=== PATIENT | female | born 1955 | race African-American/Black ===

== ENCOUNTER 2022-10-21 10:29 | Inpatient (IN) ==
[2022-10-21] MEDS ORDERED: NS 1,000 ML IV 1,000 ML IV SCH (12:00)
--- NOTE | 2022-10-21 12:16 | EKG ---
Test Reason : A-FIB, CHEST PAIN Blood Pressure : */* mmHG Vent. Rate : 120 BPM Atrial Rate : 330 BPM P-R Int : * ms QRS Dur : 82 ms QT Int : 360 ms P-R-T Axes : 89 -19 114 degrees QTc Int : 508 ms Atrial flutter with variable AV block with premature ventricular or aberrantly conducted complexes Minimal voltage criteria for LVH, may be normal variant ( [place] product ) Nonspecific T wave abnormality Abnormal ECG No previous ECGs available Confirmed by Abiel Diego ([id number]) on 10/22/2022 8:04:08 AM Referred By: Confirmed By: Abiel Diego
[2022-10-21] MEDS: CARDIZEM INJ 125 MG VIAL 125 MG in NS 100 ML IV 100 ML IV PRN (12:32)
[2022-10-21] MEDS: ECOTRIN TAB 325 MG PO SCH (12:38)
[2022-10-21 12:49] VITALS: BMI 23.6
--- NOTE | 2022-10-21 13:10 | DR.H&P ---
H&P - History & Physical for Day of: H&P Date: 10/21/22 - Chief Complaint Chief Complaint: FATIGUE, SOB, CHEST PAIN, PALPITATIONS - History of Present Illness History of Present Illness: IS A 66 YEAR OLD PATIENT OF OURS. SHE HAS A PMH OF HTN, CHRONIC CONSTIPATION, AND ARTHRITIS. PATIENT PRESENTED TO OUR OFFICE TODAY WITH COMPLAINTS OF INCREASED FATIGUE, SHORNTESS OF BREATH, AND PALPITATIONS. SHE REPORTS THAT HER SYMPTOMS STARTED ABOUT A WEEK AND A HALF AGO. UPON EXAMINATION, PATIENT WAS NOTED TO HAVE AN ELEVATED HEARTRATE. EKG INDICATED ATRIAL FIBRILLATION WITH RVR. THIS IS NEW ONSET FOR PATIENT. DECISION WAS MADE TO ADMIT PATIENT TO THE HOSPITAL OBSERVATION STATUS FOR FURTHER EVALUATION AND TREATMENT OF NEW ONSET A-FIB WITH RVR AND HTN. ON ADMISSION, PATIENTS VITALS WERE: 98.1-141-28-98%RA-146/112. LABS WERE OBTAINED. WBC 5.8, RBC 4.05, HGB 13.0, HCT 39.2, PLT COUNT 188, SODIUM 141, POTASSIUM 3.2, BUN 17, CREATININE 1.16, GLUCOSE 139, MAGNESIUM 1.6, TOTAL BILI 1.00, AST 46, ALT 95, ALK PHOS 135, CREATININE 72, TROPONIN 53.7, TOTAL PROTEIN 6.9, ALBUMIN 2.9. EKG WAS OBTAINED AND REVEALED: ATRIAL FLUTTER WITH VARIABLE AV BLOCK WITH PREMATURE VENTRICULAR OR ABERRANTLY CONDUCTED COMPLEXES. HR 120 BMP. ON ADMISSION, PATIENT WAS STARTED ON A CARDIZEM DRIP, ECOTRIN 325MG PO DAILY. WE WILL RESUME HER LISINOPRIL/HCTZ. WE WILL OBTAIN A CHEST XRAY AND AN ECHOCARDIOGRAM. WE WILL REPEAT SERIAL CARDIAC ENZYMES AND EKGS. OTHERWISE, WE WILL FOLLOW UP WITH AM LABS AND CONTINUE TO MONITOR. TIME SPENT ON CLINICAL ASSESSMENT, REVIEWING LABS AND IMAGING, DECISION MAKING, AND DOCUMENTATION GREATER THAN 75 MINUTES. - Past Medical History Past Medical History: Hypertension - Family History Family Medical History: Hypertension - Social History Does patient currently use any type of tobacco product: Yes Have you used tobacco products in the last 12 months: Yes Type of Tobacco Use: Cigarettes Does any household member use tobacco: Yes Alcohol Use: Occasionally Drug Use: None - Review of Systems Constitutional: Weakness Eyes: No Symptoms Reported ENT: No Symptoms Reported Respiratory: Shortness of Breath Cardiovascular: Chest Pain, See HPI, Palpitations Gastrointestinal: No Symptoms Reported Genitourinary: No Symptoms Reported Musculoskeletal: No Symptoms Reported Skin: No Symptoms Reported Neurological: Weakness - Physical Exam Vital Signs: Vital Signs Pulse Rate 115 Pulse Rate 113 Pulse Rate 118 Pulse Rate 122 Pulse Rate 141 Respiratory Rate 26 Respiratory Rate 30 Respiratory Rate 23 Respiratory Rate 29 Respiratory Rate 28 Blood Pressure 134/97 Blood Pressure 149/101 Blood Pressure 149/101 Blood Pressure 146/112 Blood Pressure 146/112 O2 Sat by Pulse Oximetry 95 O2 Sat by Pulse Oximetry 98 O2 Sat by Pulse Oximetry 100 O2 Sat by Pulse Oximetry 99 O2 Sat by Pulse Oximetry 98 Oriented: Normal Eyes: Normal Ear: Normal Nose: Normal Throat: Normal Respiratory: Diminished Throughout Cardiovascular: Tachycardia, Irregular : Normal Auscultation: Bowel Sounds: Normal Palpation: Normal Tenderness: Normal Skin: Normal Musculoskeletal: Normal Psychiatric: Normal Mood Description: Calm Affect: Normal Speech Pattern: Clear - Assessment/Plan (1) New onset atrial fibrillation Status: Acute Plan: ADMIT, OBTAIN SERIAL CARDIAC ENZYMES AND EKGS, OBTAIN ECHO AND CHEST XRAY, START CARDIZEM DRIP, ECOTRIN 325MG PO DAILY. RESUME LISINOPRIL/HCTZ (2) HTN (hypertension) Qualifiers: Hypertension type: primary hypertension Qualified Code(s): I10 - Essential (primary) hypertension Status: Chronic - Allergies Allergies/Adverse Reactions: Allergies Allergy/AdvReac Type Severity Reaction Status Date / Time aspirin AdvReac Verified 10/21/22 12:41 - Medications Home Medications: Home Medications Medication Instructions Recorded Confirmed lisinopril 20 1 tab PO QDAY 10/21/22 10/21/22 mg-hydrochlorothiazide 25 mg tablet
[2022-10-21 13:54] LABS: BASOPHILS # (AUTO) 0.1 X10^3/uL (0.0-0.1); BASOPHILS % (AUTO) 1.1 % (0.2-1.0); EOSINOPHILS # (AUTO) 0.1 x10^3/uL (0.0-0.2); HEMATOCRIT 39.2 % (36.0-47.0); LYMPHOCYTES # (AUTO) 1.3 X10^3/uL (1.3-2.9); LYMPHOCYTES % (AUTO) 21.6 % (21.0-51.0); MEAN CORPUSCULAR HGB CONC 33.1 g/dL (33.0-35.0); MEAN CORPUSCULAR VOLUME 96.8 fL (80.0-100.0); MEAN PLATELET VOLUME 8.2 fL (7.4-11.0); MONOCYTES # (AUTO) 0.4 x10^3/uL (0.3-0.8); MONOCYTES % (AUTO) 6.2 % (0.0-13.0); NEUTROPHILS # (AUTO) 4.1 x10^3/uL (2.2-4.8); NEUTROPHILS % (AUTO) 70.1 % (42.0-75.0); PLATELET COUNT 188 X10^3/uL (150.0-450.0); RED BLOOD COUNT 4.05 X10^6/uL (3.5-5.4); RED CELL DISTRIBUTION WIDTH 15.1 % (11.6-16.5); WHITE BLOOD COUNT 5.8 X10^3/uL (3.6-10.0)
[2022-10-21 14:08] LABS: ALANINE AMINOTRANSFERASE 95 Units/L (12-78); ALBUMIN 2.9 g/dL (3.4-5.0); ALKALINE PHOSPHATASE 135 Units/L (46-116); ASPARTATE AMINO TRANSFERASE 46 Units/L (15-37); BLOOD UREA NITROGEN 17 mg/dL (7-18); CALCIUM 8.8 mg/dL (8.5-10.1); CARBON DIOXIDE 30.3 mmol/L (21-32); CHLORIDE 102 mmol/L (98-107); COR CA(FOR HYPOALB) 9.7 mg/dL (8.5-10.1); COR NA(FOR HYPERGLY) 142 mmol/L (136-145); CREATINE KINASE 72 Units/L (26-192); CREATININE 1.16 mg/dL (0.55-1.02); GLUCOSE 139 mg/dL (65-99); POTASSIUM 3.2 mmol/L (3.5-5.1); SODIUM 141 mmol/L (136-145); TOTAL PROTEIN 6.9 g/dL (6.4-8.2); eGFR NON BLACK RACES 50 (>60)
[2022-10-21] MEDS: ZESTORETIC 20/25 MG PO SCH (14:25)
[2022-10-21] MEDS ORDERED: CONSULT PHARMACY - POTASSIUM & MAGNESIUM XX SCH (15:00)
[2022-10-21] MEDS: K-DUR TAB 20 MEQ PO SCH ×2 (15:45→18:27)
[2022-10-21] MEDS: MAG-OX TAB PO SCH ×2 (15:45→16:55)
[2022-10-21] MEDS: NS + KCL 20 MEQ/L 1,000 ML with MAGNESIUM SULFATE 50% INJ VIAL 1 G IV SCH ×2 (15:45)
--- NOTE | 2022-10-21 16:47 | EKG ---
Test Reason : TACHYCARDIA Blood Pressure : */* mmHG Vent. Rate : 81 BPM Atrial Rate : 366 BPM P-R Int : * ms QRS Dur : 84 ms QT Int : 390 ms P-R-T Axes : * -25 195 degrees QTc Int : 453 ms Atrial flutter with variable AV block with premature ventricular or aberrantly conducted complexes Moderate voltage criteria for LVH, may be normal variant ( Sokolow-Mcmullen , [place] product ) Nonspecific T wave abnormality Abnormal ECG When compared with ECG of 21-OCT-2022 12:07, (Unconfirmed) Nonspecific T wave abnormality now evident in Inferior leads Confirmed by Abiel Diego ([id number]) on 10/22/2022 8:03:47 AM Referred By: Confirmed By: Abiel Diego
--- NOTE | 2022-10-21 21:17 | EKG ---
Test Reason : TACHYCARDIA Blood Pressure : */* mmHG Vent. Rate : 94 BPM Atrial Rate : 376 BPM P-R Int : * ms QRS Dur : 82 ms QT Int : 390 ms P-R-T Axes : * -21 158 degrees QTc Int : 487 ms Atrial flutter with variable AV block with premature ventricular or aberrantly conducted complexes Moderate voltage criteria for LVH, may be normal variant ( Sokolow-Mcmullen , [place] product ) Nonspecific T wave abnormality Prolonged QT Abnormal ECG When compared with ECG of 21-OCT-2022 16:37, (Unconfirmed) No significant change was found Confirmed by Abiel Diego ([id number]) on 10/22/2022 8:03:33 AM Referred By: Confirmed By: Abiel Diego
[2022-10-22] MEDS: CARDIZEM INJ 125 MG VIAL 125 MG in NS 100 ML IV 100 ML IV PRN ×2 (01:29→14:05)
[2022-10-22 05:27] LABS: BASOPHILS # (AUTO) 0.1 X10^3/uL (0.0-0.1); EOSINOPHILS # (AUTO) 0.1 x10^3/uL (0.0-0.2); EOSINOPHILS % (AUTO) 1.4 % (0.9-2.9); HEMATOCRIT 38.3 % (36.0-47.0); LYMPHOCYTES # (AUTO) 1.5 X10^3/uL (1.3-2.9); LYMPHOCYTES % (AUTO) 25.1 % (21.0-51.0); MEAN CORPUSCULAR HEMOGLOBIN 32.6 pg (27.0-34.0); MEAN CORPUSCULAR HGB CONC 33.9 g/dL (33.0-35.0); MEAN CORPUSCULAR VOLUME 96.1 fL (80.0-100.0); MEAN PLATELET VOLUME 8.8 fL (7.4-11.0); MONOCYTES # (AUTO) 0.5 x10^3/uL (0.3-0.8); MONOCYTES % (AUTO) 8.1 % (0.0-13.0); NEUTROPHILS # (AUTO) 3.9 x10^3/uL (2.2-4.8); NEUTROPHILS % (AUTO) 64.4 % (42.0-75.0); PLATELET COUNT 177 X10^3/uL (150.0-450.0); RED BLOOD COUNT 3.99 X10^6/uL (3.5-5.4); WHITE BLOOD COUNT 6.1 X10^3/uL (3.6-10.0)
--- NOTE | 2022-10-22 05:32 | RAD ---
HISTORYCHEST PAIN Relevant Clinical InformationSTUDYCHEST, 1 VIEWCOMPARISONNoneFINDINGSThe trachea is midline. The cardiac silhouette is mildly enlarged.. The lungs are clear without focal infiltrate or effusion. The bony thorax is unremarkable.IMPRESSIONMild cardiomegalyNo active cardiopulmonary disease.Electronically signed by: Keyshawn Brooks (Oct 22, 2022 05:31:01)
[2022-10-22 05:33] LABS: ALANINE AMINOTRANSFERASE 77 Units/L (12-78); ALBUMIN 2.8 g/dL (3.4-5.0); ALKALINE PHOSPHATASE 124 Units/L (46-116); ASPARTATE AMINO TRANSFERASE 31 Units/L (15-37); BLOOD UREA NITROGEN 15 mg/dL (7-18); CALCIUM 8.7 mg/dL (8.5-10.1); CARBON DIOXIDE 29.1 mmol/L (21-32); CHLORIDE 102 mmol/L (98-107); COR CA(FOR HYPOALB) 9.7 mg/dL (8.5-10.1); CREATININE 0.95 mg/dL (0.55-1.02); GLUCOSE 93 mg/dL (65-99); MAGNESIUM 1.6 mg/dL (2.0-2.9); POTASSIUM 3.8 mmol/L (3.5-5.1); SODIUM 139 mmol/L (136-145); TOTAL PROTEIN 6.5 g/dL (6.4-8.2); eGFR NON BLACK RACES > 60 (>60)
[2022-10-22] MEDS: ZESTORETIC 20/25 MG PO SCH (09:30)
[2022-10-22] MEDS: MAG-OX TAB PO SCH ×2 (09:30→21:24)
[2022-10-22] MEDS: NS + KCL 20 MEQ/L 1,000 ML with MAGNESIUM SULFATE 50% INJ VIAL 1 G IV SCH ×2 (09:49)
--- NOTE | 2022-10-22 10:46 | DR.CONSULT ---
CONSULT Consultation for Day of: Date: 10/22/22 Chief Complaint Chief Complaint: sob/fast heart Allergies Allergies Allergy/AdvReac Type Severity Reaction Status Date / Time aspirin AdvReac Verified 10/21/22 12:41 History of Present Illness History of Present Illness: 10 days of sob/fast heart- no prior cardiac history- has htn , smoker,drinks 12 pk weekend- found to be in rafib/fl- trops mildly abnormal- on cardizem drip- no anticaogulation as of yet- no tsh check- echo pending- labs to note: loretta wright, cxr : cardiomegaly Past Medical History Past Medical History: Hypertension Family History Family Medical History: Hypertension Social History Does patient currently use any type of tobacco product: Yes Have you used tobacco products in the last 12 months: Yes Type of Tobacco Use: Cigarettes Does any household member use tobacco: Yes Alcohol Use: Occasionally Drug Use: None Medications Home Medications: aspirin Adverse Reaction (Verified 10/21/22 12:41) CONTINUE taking the following medications lisinopril 20 mg-hydrochlorothiazide 25 mg tablet 1 tab PO QDAY 10/21/22 [History] Physical Exam Vital Signs: Vital Signs Temperature 98.4 F Pulse Rate 104 Pulse Rate 131 Pulse Rate 80 Pulse Rate 78 Pulse Rate 74 Pulse Rate 78 Pulse Rate 86 Pulse Rate 79 Respiratory Rate 20 Respiratory Rate 21 Respiratory Rate 23 Respiratory Rate 23 Respiratory Rate 23 Respiratory Rate 25 Respiratory Rate 26 Respiratory Rate 15 Blood Pressure 122/82 Blood Pressure 127/69 Blood Pressure 129/88 Blood Pressure 145/92 Blood Pressure 134/88 Blood Pressure 128/93 Blood Pressure 116/75 Blood Pressure 135/87 Blood Pressure 135/87 O2 Sat by Pulse Oximetry 97 O2 Sat by Pulse Oximetry 92 O2 Sat by Pulse Oximetry 95 O2 Sat by Pulse Oximetry 95 O2 Sat by Pulse Oximetry 91 O2 Sat by Pulse Oximetry 94 O2 Sat by Pulse Oximetry 94 O2 Sat by Pulse Oximetry 95 alert ox3 hr variable- 6 cm jvd , few crackles at base, irreg 2/6 rolando 1-2 plus edema Plan (1) New onset atrial fibrillation: Status: Acute Plan: echo/tsh/eliquis. rate control w po BB and iv CCB (2) HTN (hypertension): Status: Chronic Qualifiers: Hypertension type: primary hypertension Qualified Code(s): I10 - Essential (primary) hypertension (3) Low serum albumin: Status: Acute Plan: check ua for dumping protein (4) Cardiomegaly: Status: Acute
[2022-10-22] MEDS ORDERED: LOPRESSOR TAB 25 MG PO SCH (11:00)
[2022-10-22] MEDS: ELIQUIS PO SCH ×2 (11:31→21:24)
[2022-10-22] MEDS: LOPRESSOR TAB 25 MG PO SCH ×3 (11:31→23:47)
[2022-10-22 12:19] LABS: BILIRUBIN,URINE NEGATIVE (NEGATIVE); BLOOD/HEMOGLOBIN,URINE 1+ (NEGATIVE); GLUCOSE, URINE NEGATIVE (NEGATIVE); KETONES,URINE NEGATIVE (NEGATIVE); LEUKOCYTE ESTERASE ,URINE 1+ (NEGATIVE); NITRITES,URINE NEGATIVE (NEGATIVE); PROTEIN,URINE 2+ (NEGATIVE); UROBILINOGEN,URINE 2+ (NORMAL)
[2022-10-22 12:28] LABS: APPEARANCE,URINE CLEAR (CLEAR); COLOR,URINE YELLOW (YELLOW)
[2022-10-22 12:29] LABS: BACTERIA,URINE TRACE /HPF (NEGATIVE); RBC,URINE 0-2 /HPF (0-3); SQUAMOUS EPITHELIAL CELL,UR MANY /HPF (NEGATIVE)
[2022-10-22] MEDS: ROCEPHIN VIAL 1 GRAM 1 G in NS 100 ML IV 100 ML IV SCH (14:05)
[2022-10-22] MEDS: ECOTRIN TAB 325 MG PO SCH (18:55)
[2022-10-23 05:20] LABS: BASOPHILS # (AUTO) 0.1 X10^3/uL (0.0-0.1); EOSINOPHILS # (AUTO) 0.1 x10^3/uL (0.0-0.2); EOSINOPHILS % (AUTO) 1.4 % (0.9-2.9); HEMATOCRIT 37.3 % (36.0-47.0); HEMOGLOBIN 12.6 g/dL (12.0-16.0); LYMPHOCYTES # (AUTO) 1.6 X10^3/uL (1.3-2.9); MEAN CORPUSCULAR HEMOGLOBIN 32.4 pg (27.0-34.0); MEAN CORPUSCULAR HGB CONC 33.8 g/dL (33.0-35.0); MEAN PLATELET VOLUME 8.9 fL (7.4-11.0); MONOCYTES # (AUTO) 0.5 x10^3/uL (0.3-0.8); MONOCYTES % (AUTO) 8.4 % (0.0-13.0); NEUTROPHILS % (AUTO) 64.2 % (42.0-75.0); PLATELET COUNT 190 X10^3/uL (150.0-450.0); RED BLOOD COUNT 3.88 X10^6/uL (3.5-5.4); RED CELL DISTRIBUTION WIDTH 15.1 % (11.6-16.5); WHITE BLOOD COUNT 6.3 X10^3/uL (3.6-10.0)
[2022-10-23 05:29] LABS: ALANINE AMINOTRANSFERASE 59 Units/L (12-78); ALBUMIN 2.6 g/dL (3.4-5.0); ALKALINE PHOSPHATASE 114 Units/L (46-116); ASPARTATE AMINO TRANSFERASE 21 Units/L (15-37); BLOOD UREA NITROGEN 13 mg/dL (7-18); CALCIUM 8.7 mg/dL (8.5-10.1); CARBON DIOXIDE 26.6 mmol/L (21-32); CHLORIDE 101 mmol/L (98-107); COR CA(FOR HYPOALB) 9.8 mg/dL (8.5-10.1); CREATININE 0.98 mg/dL (0.55-1.02); GLUCOSE 96 mg/dL (65-99); SODIUM 136 mmol/L (136-145); TOTAL PROTEIN 6.5 g/dL (6.4-8.2); eGFR NON BLACK RACES > 60 (>60)
[2022-10-23] MEDS: LOPRESSOR TAB 25 MG PO SCH ×2 (05:36→11:00)
[2022-10-23] MEDS: CARDIZEM INJ 125 MG VIAL 125 MG in NS 100 ML IV 100 ML IV PRN ×2 (08:36→20:41)
[2022-10-23] MEDS: ZESTORETIC 20/25 MG PO SCH (08:38)
[2022-10-23] MEDS: ROCEPHIN VIAL 1 GRAM 1 G in NS 100 ML IV 100 ML IV SCH (08:38)
[2022-10-23] MEDS: MAG-OX TAB PO SCH ×2 (08:38→20:29)
[2022-10-23] MEDS: NS + KCL 20 MEQ/L 1,000 ML with MAGNESIUM SULFATE 50% INJ VIAL 1 G IV SCH ×2 (08:38)
[2022-10-23] MEDS: ELIQUIS PO SCH ×2 (08:38→20:29)
[2022-10-23] MEDS ORDERED: ELIQUIS PO ONE (10:40)
--- NOTE | 2022-10-23 12:19 | PCM.PROG ---
Progress Note - Progress Note for Day of Date of Exam: 10/22/22 - Subjective Subjective: IS CURRENTLY INPATIENT STATUS FOR TREATMENT OF NEW ONSET A-FIB. SHE HAS A PMH OF HTN, CHRONIC CONSTIPATION, AND ARTHRITIS. PATIENT CONTINUES TO COMPLAIN OF FATIGUE, SHORNTESS OF BREATH, AND PALPITATIONS SINCE ADMISSION. SHE DENIES SIGNIFICANT IMPROVEMENT IN SYMPTOMS. HER RHYTHM HAS REMAINED IRREGULAR AND HER HEART RATE HAS VARIED FROM THE 60s TO 130s. SHE REMAINS ON A CARDIZEM DRIP THIS MORNING. ON EXAMINATION THIS MORNING, HR IS IN THE 120s AND IRREGULAR. BILATERAL LUNGS ARE NOTED WITH DIMINISHED LUNG SOUNDS THROUGHOUT. ABDOMEN IS ROUND, SOFT, AND NON-TENDER WITH NORMAL BOWEL SOUNDS NOTED IN ALL QUADRANTS. GOOD RANGE OF MOTION NOTED TO UPPER AND LOWER EXTREMITIES WITH NO EDEMA NOTED. HER VITALS AT 8AM THIS MORNING WERE: 98.0-80-23-95%-129/88. LABS WERE OBTAINED. WBC 6.1, RBC 3.99, HGB 13.0, HCT 38.3, PLT COUNT 177, SODIUM 139, POTASSIUM 3.8, CHLORIDE 102, CARBON DIOXIDE 29.1, BUN 15, CREATININE 0.95, GLUCOSE 93, CALCIUM 8.7, MAGNESIUM 1.6, AST 31, ALT 77, ALK PHOS 124, TOTAL PROTEIN 6.5, ALBUMIN 2.8. HER TROPONIN AT 21:45 LAST NIGHT WAS 62.2. SHE IS CURRENTLY ON A CARDIZEM DRIP AND IS RECEIVING ECOTRIN 325MG DAILY. HER HOME MEDICATION OF ZESTORETIC WAS RESUMED. THIS MORNING, WE WILL OBTAIN AN ECHOCARDIOGRAM. WE WILL CONSULT , [employer] OFFICER. OTHERWISE, WE WILL FOLLOW UP WITH AM LABS AND CONTINUE TO MONITOR. TIME SPENT ON CLINICAL ASSESSMENT, REVIEWING LABS AND IMAGING, DECISION MAKING, AND DOCUMENTATION GREATER THAN 45 MINUTES. - Past Medical Family Social History Past Med/Fam/Surg Hx: No changes since H&P Allergies: Allergies aspirin Adverse Reaction (Verified 10/21/22 12:41) Pt states it makes her "stomach hurt really bad" - Review of Systems ROS: No change since H&P - Vital Signs and I&O's Vital Signs: Vital Signs Temperature 97.9 F Pulse Rate 69 Pulse Rate 66 Pulse Rate 119 Pulse Rate 123 Pulse Rate 125 Pulse Rate 126 Pulse Rate 127 Pulse Rate 127 Pulse Rate 63 Respiratory Rate 21 Respiratory Rate 21 Respiratory Rate 28 Respiratory Rate 17 Respiratory Rate 29 Respiratory Rate 23 Respiratory Rate 34 Respiratory Rate 34 Respiratory Rate 26 Blood Pressure 126/96 Blood Pressure 124/80 Blood Pressure 136/77 Blood Pressure 136/64 Blood Pressure 122/95 Blood Pressure 129/81 Blood Pressure 129/81 Blood Pressure 133/89 O2 Sat by Pulse Oximetry 94 O2 Sat by Pulse Oximetry 95 O2 Sat by Pulse Oximetry 95 O2 Sat by Pulse Oximetry 96 O2 Sat by Pulse Oximetry 96 O2 Sat by Pulse Oximetry 95 O2 Sat by Pulse Oximetry 82 O2 Sat by Pulse Oximetry 94 Intake and Output: Intake & Output 10/21/22 10/22/22 10/23/22 10/24/22 11:59 11:59 11:59 11:59 Intake Total / Balance / - Physical Exam Oriented: Normal Eyes: Normal Ear: Normal Nose: Normal Throat: Normal Respiratory: Generalized, Diminished Cardiovascular: Tachycardia, Irregular : Normal Auscultation: Bowel Sounds: Normal Palpation: Normal Tenderness: Normal Skin: Normal Musculoskeletal: Normal Psychiatric: Normal Mood Description: Calm Affect: Normal Speech Pattern: Clear, Appropriate - Laboratory and Diagnostics Result Diagrams: 10/23/22 04:36 10/23/22 04:36 Labs: Laboratory WBC 6.3 X10^3/uL (3.6-10.0) 10/23/22 04:36 RBC 3.88 X10^6/uL (3.5-5.4) 10/23/22 04:36 Hgb 12.6 g/dL (12.0-16.0) 10/23/22 04:36 Hct 37.3 % (36.0-47.0) 10/23/22 04:36 MCV 96.0 fL (80.0-100.0) 10/23/22 04:36 MCH 32.4 pg (27.0-34.0) 10/23/22 04:36 MCHC 33.8 g/dL (33.0-35.0) 10/23/22 04:36 RDW 15.1 % (11.6-16.5) 10/23/22 04:36 Plt Count 190 X10^3/uL (150.0-450.0) 10/23/22 04:36 MPV 8.9 fL (7.4-11.0) 10/23/22 04:36 Neut % (Auto) 64.2 % (42.0-75.0) 10/23/22 04:36 Lymph % (Auto) 25.0 % (21.0-51.0) 10/23/22 04:36 [place] % (Auto) 8.4 % (0.0-13.0) 10/23/22 04:36 Eos % (Auto) 1.4 % (0.9-2.9) 10/23/22 04:36 Baso % (Auto) 1.0 % (0.2-1.0) 10/23/22 04:36 Neut # (Auto) 4.0 x10^3/uL (2.2-4.8) 10/23/22 04:36 Lymph # (Auto) 1.6 X10^3/uL (1.3-2.9) 10/23/22 04:36 [place] # (Auto) 0.5 x10^3/uL (0.3-0.8) 10/23/22 04:36 Eos # (Auto) 0.1 x10^3/uL (0.0-0.2) 10/23/22 04:36 Baso # (Auto) 0.1 X10^3/uL (0.0-0.1) 10/23/22 04:36 Absolute Nucleated RBC 0.1 /100WBC 10/23/22 04:36 Sodium 136 mmol/L (136-145) 10/23/22 04:36 Corrected Sodium TNP 10/23/22 04:36 Potassium 4.0 mmol/L (3.5-5.1) 10/23/22 04:36 Chloride 101 mmol/L (98-107) 10/23/22 04:36 Carbon Dioxide 26.6 mmol/L (21-32) 10/23/22 04:36 BUN 13 mg/dL (7-18) 10/23/22 04:36 Creatinine 0.98 mg/dL (0.55-1.02) 10/23/22 04:36 Est GFR (MDRD) Af Amer > 60 (>60) 10/23/22 04:36 Est GFR (MDRD) Non-Af > 60 (>60) 10/23/22 04:36 Glucose 96 mg/dL (65-99) 10/23/22 04:36 Calcium 8.7 mg/dL (8.5-10.1) 10/23/22 04:36 Corrected Calcium 9.8 mg/dL (8.5-10.1) 10/23/22 04:36 Magnesium 1.7 mg/dL (2.0-2.9) L 10/23/22 04:36 Total Bilirubin 0.90 mg/dL (0.2-1.0) 10/23/22 04:36 AST 21 Units/L (15-37) 10/23/22 04:36 ALT 59 Units/L (12-78) 10/23/22 04:36 Alkaline Phosphatase 114 Units/L (46-116) 10/23/22 04:36 Creatine Kinase 58 Units/L (26-192) 10/21/22 21:45 Troponin I High Sens 62.2 ng/L (4.0-60.0) H* 10/21/22 21:45 Total Protein 6.5 g/dL (6.4-8.2) 10/23/22 04:36 Albumin 2.6 g/dL (3.4-5.0) L 10/23/22 04:36 Globulin 3.9 g/dL (2.5-4.5) 10/23/22 04:36 Albumin/Globulin Ratio 0.7 Ratio (1.1-2.1) L 10/23/22 04:36 TSH 3rd Generation 2.091 uIU/mL (0.358-3.74) 10/22/22 11:47 Specimen Type Clean catch urine 10/22/22 12:00 Urine Color Yellow (YELLOW) 10/22/22 12:00 Urine Appearance Clear (CLEAR) 10/22/22 12:00 Urine pH 7.0 (5.0 - 8.0) 10/22/22 12:00 Ur Specific [place] 1.010 (1.000-1.030) 10/22/22 12:00 Urine Protein 2+ (NEGATIVE) 10/22/22 12:00 Urine Glucose (UA) Negative (NEGATIVE) 10/22/22 12:00 Urine Ketones Negative (NEGATIVE) 10/22/22 12:00 Urine Blood 1+ (NEGATIVE) 10/22/22 12:00 Urine Nitrite Negative (NEGATIVE) 10/22/22 12:00 Urine Bilirubin Negative (NEGATIVE) 10/22/22 12:00 Urine Urobilinogen 2+ (NORMAL) 10/22/22 12:00 Ur Leukocyte Esterase 1+ (NEGATIVE) 10/22/22 12:00 Urine RBC 0-2 /HPF (0-3) 10/22/22 12:00 Urine WBC 0-2 /HPF (0-5) 10/22/22 12:00 Ur Squamous Epith Cells Many /HPF (NEGATIVE) 10/22/22 12:00 Urine Bacteria Trace /HPF (NEGATIVE) 10/22/22 12:00 Urine Mucus Few /HPF (NEGATIVE) 10/22/22 12:00 Ur Culture Indicated? No/not indicated 10/22/22 12:00 - Plan (1) New onset atrial fibrillation Status: Acute Plan: OBTAIN ECHO AND CARDIOLOGY CONSULT, CONTINUE CARDIZEM DRIP, ECOTRIN 325MG PO DAILY AND LISINOPRIL/HCTZ (2) HTN (hypertension) Status: Chronic Qualifiers: Hypertension type: primary hypertension Qualified Code(s): I10 - Essential (primary) hypertension Plan: CONTINUE LISINOPRIL/HCTZ
--- NOTE | 2022-10-23 12:29 | PCM.PROG ---
Progress Note - Progress Note for Day of Date of Exam: 10/23/22 - Subjective Subjective: IS CURRENTLY INPATIENT STATUS FOR TREATMENT OF NEW ONSET A-FIB. SHE HAS A PMH OF HTN, CHRONIC CONSTIPATION, AND ARTHRITIS. PATIENT CONTINUES TO COMPLAIN OF FATIGUE, SHORNTESS OF BREATH, AND PALPITATIONS SINCE ADMISSION. SHE DOES REPORT SLIGHT IMPROVEMENT IN SYMPTOMS SINCE ADMISSION. HER RHYTHM HAS REMAINED IRREGULAR AND HER HEART RATE HAS VARIED FROM THE 60s TO 120s. ON EXAMINATION THIS MORNING, HR IS IN THE 120s AND IRREGULAR. BILATERAL LUNGS ARE NOTED WITH DIMINISHED LUNG SOUNDS THROUGHOUT. ABDOMEN IS ROUND, SOFT, AND NON-TENDER WITH NORMAL BOWEL SOUNDS NOTED IN ALL QUADRANTS. GOOD RANGE OF MOTION NOTED TO UPPER AND LOWER EXTREMITIES WITH NO EDEMA NOTED. HER VITALS AT 8AM THIS MORNING WERE: 97.9-125-29-96%-136/64. LABS WERE OBTAINED. WBC 6.3, RBC 3.88, HGB 12.6, HCT 37.3, PLT COUNT 190, SODIUM 136, POTASSIUM 4.0, CHLORIDE 101, BUN 13, CREATININE 0.98, GLUCOSE 96, CALCIUM 8.7, MAGNESIUM 1.7, AST 21, ALT 59, ALK PHOS 114, TOTAL PROTEIN 6.5, ALBUMIN 2.6. AN ECHOCARDIOGRAM WAS OBTAINED YESTERDAY. HER EJECTION FRACTION WAS 25-30%. THERE WAS A LARGE MASS SEEN IN [place] CONSISTENT WITH THROMBUS. SCLEROSIS OF THE AORTIC VALVE. RVSP 51mmHg. , LABORER WHARF, CONSULTED WITH PATIENT YESTERDAY. HE DISCONTINUED THE CARDIZEM DRIP AND STARTED ELIQUIS 5MG BID AND METOPROLOL 25MG Q6H. HER HR REMAINED ELEVATED THROUGHOUT THE NIGHT DESPITE CHANGES, THEREFORE, SHE WAS PLACE D BACK ON THE CARDIZEM DRIP. TODAY, WE WILL INCREASE THE ELIQUIS TO 10MG BID. OTHERWISE, WE WILL FOLLOW UP WITH AM LABS AND CONTINUE TO MONITOR. TIME SPENT ON CLINICAL ASSESSMENT, REVIEWING LABS AND IMAGING, DECISION MAKING, AND DOCUMENTATION GREATER THAN 75 MINUTES. - Past Medical Family Social History Past Med/Fam/Surg Hx: No changes since H&P Allergies: Allergies aspirin Adverse Reaction (Verified 10/21/22 12:41) Pt states it makes her "stomach hurt really bad" - Review of Systems ROS: No change since H&P - Vital Signs and I&O's Vital Signs: Vital Signs Temperature 97.9 F Pulse Rate 69 Pulse Rate 66 Pulse Rate 119 Pulse Rate 123 Pulse Rate 125 Pulse Rate 126 Pulse Rate 127 Pulse Rate 127 Pulse Rate 63 Respiratory Rate 21 Respiratory Rate 21 Respiratory Rate 28 Respiratory Rate 17 Respiratory Rate 29 Respiratory Rate 23 Respiratory Rate 34 Respiratory Rate 34 Respiratory Rate 26 Blood Pressure 126/96 Blood Pressure 124/80 Blood Pressure 136/77 Blood Pressure 136/64 Blood Pressure 122/95 Blood Pressure 129/81 Blood Pressure 129/81 Blood Pressure 133/89 O2 Sat by Pulse Oximetry 94 O2 Sat by Pulse Oximetry 95 O2 Sat by Pulse Oximetry 95 O2 Sat by Pulse Oximetry 96 O2 Sat by Pulse Oximetry 96 O2 Sat by Pulse Oximetry 95 O2 Sat by Pulse Oximetry 82 O2 Sat by Pulse Oximetry 94 Intake and Output: Intake & Output 10/21/22 10/22/22 10/23/22 10/24/22 11:59 11:59 11:59 11:59 Intake Total 2002.0 50 / 1915.50 Balance 0 50 / 50 - Physical Exam Oriented: Normal Eyes: Normal Ear: Normal Nose: Normal Throat: Normal Respiratory: Generalized, Diminished Cardiovascular: Tachycardia, Irregular : Normal Auscultation: Bowel Sounds: Normal Palpation: Normal Tenderness: Normal Skin: Normal Musculoskeletal: Normal Psychiatric: Normal Mood Description: Calm Affect: Normal Speech Pattern: Clear, Appropriate - Laboratory and Diagnostics Result Diagrams: 10/23/22 04:36 10/23/22 04:36 Labs: Laboratory WBC 6.3 X10^3/uL (3.6-10.0) 10/23/22 04:36 RBC 3.88 X10^6/uL (3.5-5.4) 10/23/22 04:36 Hgb 12.6 g/dL (12.0-16.0) 10/23/22 04:36 Hct 37.3 % (36.0-47.0) 10/23/22 04:36 MCV 96.0 fL (80.0-100.0) 10/23/22 04:36 MCH 32.4 pg (27.0-34.0) 10/23/22 04:36 MCHC 33.8 g/dL (33.0-35.0) 10/23/22 04:36 RDW 15.1 % (11.6-16.5) 10/23/22 04:36 Plt Count 190 X10^3/uL (150.0-450.0) 10/23/22 04:36 MPV 8.9 fL (7.4-11.0) 10/23/22 04:36 Neut % (Auto) 64.2 % (42.0-75.0) 10/23/22 04:36 Lymph % (Auto) 25.0 % (21.0-51.0) 10/23/22 04:36 [place] % (Auto) 8.4 % (0.0-13.0) 10/23/22 04:36 Eos % (Auto) 1.4 % (0.9-2.9) 10/23/22 04:36 Baso % (Auto) 1.0 % (0.2-1.0) 10/23/22 04:36 Neut # (Auto) 4.0 x10^3/uL (2.2-4.8) 10/23/22 04:36 Lymph # (Auto) 1.6 X10^3/uL (1.3-2.9) 10/23/22 04:36 [place] # (Auto) 0.5 x10^3/uL (0.3-0.8) 10/23/22 04:36 Eos # (Auto) 0.1 x10^3/uL (0.0-0.2) 10/23/22 04:36 Baso # (Auto) 0.1 X10^3/uL (0.0-0.1) 10/23/22 04:36 Absolute Nucleated RBC 0.1 /100WBC 10/23/22 04:36 Sodium 136 mmol/L (136-145) 10/23/22 04:36 Corrected Sodium TNP 10/23/22 04:36 Potassium 4.0 mmol/L (3.5-5.1) 10/23/22 04:36 Chloride 101 mmol/L (98-107) 10/23/22 04:36 Carbon Dioxide 26.6 mmol/L (21-32) 10/23/22 04:36 BUN 13 mg/dL (7-18) 10/23/22 04:36 Creatinine 0.98 mg/dL (0.55-1.02) 10/23/22 04:36 Est GFR (MDRD) Af Amer > 60 (>60) 10/23/22 04:36 Est GFR (MDRD) Non-Af > 60 (>60) 10/23/22 04:36 Glucose 96 mg/dL (65-99) 10/23/22 04:36 Calcium 8.7 mg/dL (8.5-10.1) 10/23/22 04:36 Corrected Calcium 9.8 mg/dL (8.5-10.1) 10/23/22 04:36 Magnesium 1.7 mg/dL (2.0-2.9) L 10/23/22 04:36 Total Bilirubin 0.90 mg/dL (0.2-1.0) 10/23/22 04:36 AST 21 Units/L (15-37) 10/23/22 04:36 ALT 59 Units/L (12-78) 10/23/22 04:36 Alkaline Phosphatase 114 Units/L (46-116) 10/23/22 04:36 Creatine Kinase 58 Units/L (26-192) 10/21/22 21:45 Troponin I High Sens 62.2 ng/L (4.0-60.0) H* 10/21/22 21:45 Total Protein 6.5 g/dL (6.4-8.2) 10/23/22 04:36 Albumin 2.6 g/dL (3.4-5.0) L 10/23/22 04:36 Globulin 3.9 g/dL (2.5-4.5) 10/23/22 04:36 Albumin/Globulin Ratio 0.7 Ratio (1.1-2.1) L 10/23/22 04:36 TSH 3rd Generation 2.091 uIU/mL (0.358-3.74) 10/22/22 11:47 Specimen Type Clean catch urine 10/22/22 12:00 Urine Color Yellow (YELLOW) 10/22/22 12:00 Urine Appearance Clear (CLEAR) 10/22/22 12:00 Urine pH 7.0 (5.0 - 8.0) 10/22/22 12:00 Ur Specific [place] 1.010 (1.000-1.030) 10/22/22 12:00 Urine Protein 2+ (NEGATIVE) 10/22/22 12:00 Urine Glucose (UA) Negative (NEGATIVE) 10/22/22 12:00 Urine Ketones Negative (NEGATIVE) 10/22/22 12:00 Urine Blood 1+ (NEGATIVE) 10/22/22 12:00 Urine Nitrite Negative (NEGATIVE) 10/22/22 12:00 Urine Bilirubin Negative (NEGATIVE) 10/22/22 12:00 Urine Urobilinogen 2+ (NORMAL) 10/22/22 12:00 Ur Leukocyte Esterase 1+ (NEGATIVE) 10/22/22 12:00 Urine RBC 0-2 /HPF (0-3) 10/22/22 12:00 Urine WBC 0-2 /HPF (0-5) 10/22/22 12:00 Ur Squamous Epith Cells Many /HPF (NEGATIVE) 10/22/22 12:00 Urine Bacteria Trace /HPF (NEGATIVE) 10/22/22 12:00 Urine Mucus Few /HPF (NEGATIVE) 10/22/22 12:00 Ur Culture Indicated? No/not indicated 10/22/22 12:00 - Plan (1) New onset atrial fibrillation Status: Acute Plan: NS WITH POTASSIUM AND MAGNESIUM AT KVO, CARDIZEM DRIP, ELIQUIS 10MG BID, LOPRESSOR 25MG Q6H, LISINOPRIL/HCTZ, MAGNESIUM OXIDE 400MG BID. (2) [place] thrombus Status: Acute (3) Hypomagnesemia Status: Acute (4) Bacteriuria Status: Acute Plan: ROCEPHIN 1G IV DAILY (5) HTN (hypertension) Status: Chronic Qualifiers: Hypertension type: primary hypertension Qualified Code(s): I10 - Essential (primary) hypertension Plan: CONTINUE LISINOPRIL/HCTZ
--- NOTE | 2022-10-23 13:12 | NOTE.SOAP ---
Soap Note Note for Day of Date of Exam: 10/23/22 Subjective Data Subjective Data: sob improved, edema improved- Objective Data Objective Data: hr 60-140( very labile)- still on 10 mg cardizem- echo: ef 30%-big LA mass c/w clot- urine shows 2plus protein so proteinuria contributing to low albumn, tsh normal- Alert ox3 irregirreg few crckles rolando minimal edema Assessment Assessment: afib, cardiomyopathy, left atrial clot, Etoh abuse, low albumin and proteinuria Plan Plan: change to metoprolol succ due to LV dysfunction, add dig for lv/rate control- cont DOAC- stop etoh- will need ischemic eval in future( posssibly coronary CTA ) but must hav ebetter rate control
[2022-10-23] MEDS: LANOXIN or DIGITEK PO SCH (13:40)
[2022-10-23] MEDS: TOPROL XL PO SCH (20:29)
[2022-10-24] MEDS: CARDIZEM INJ 125 MG VIAL 125 MG in NS 100 ML IV 100 ML IV PRN ×2 (05:04→18:25)
[2022-10-24 05:27] LABS: BASOPHILS # (AUTO) 0.1 X10^3/uL (0.0-0.1); BASOPHILS % (AUTO) 0.9 % (0.2-1.0); EOSINOPHILS # (AUTO) 0.1 x10^3/uL (0.0-0.2); EOSINOPHILS % (AUTO) 1.5 % (0.9-2.9); HEMATOCRIT 38.1 % (36.0-47.0); LYMPHOCYTES # (AUTO) 1.5 X10^3/uL (1.3-2.9); LYMPHOCYTES % (AUTO) 24.2 % (21.0-51.0); MEAN CORPUSCULAR HEMOGLOBIN 32.7 pg (27.0-34.0); MEAN CORPUSCULAR HGB CONC 34.2 g/dL (33.0-35.0); MEAN CORPUSCULAR VOLUME 95.6 fL (80.0-100.0); MEAN PLATELET VOLUME 9.1 fL (7.4-11.0); MONOCYTES # (AUTO) 0.5 x10^3/uL (0.3-0.8); MONOCYTES % (AUTO) 7.5 % (0.0-13.0); NEUTROPHILS # (AUTO) 4.2 x10^3/uL (2.2-4.8); NEUTROPHILS % (AUTO) 65.9 % (42.0-75.0); PLATELET COUNT 195 X10^3/uL (150.0-450.0); RED BLOOD COUNT 3.98 X10^6/uL (3.5-5.4); RED CELL DISTRIBUTION WIDTH 15.3 % (11.6-16.5); WHITE BLOOD COUNT 6.3 X10^3/uL (3.6-10.0)
[2022-10-24 05:42] LABS: ALANINE AMINOTRANSFERASE 50 Units/L (12-78); ALBUMIN 2.7 g/dL (3.4-5.0); ALKALINE PHOSPHATASE 112 Units/L (46-116); ASPARTATE AMINO TRANSFERASE 20 Units/L (15-37); BLOOD UREA NITROGEN 12 mg/dL (7-18); CALCIUM 8.9 mg/dL (8.5-10.1); CARBON DIOXIDE 26.4 mmol/L (21-32); CHLORIDE 102 mmol/L (98-107); COR CA(FOR HYPOALB) 9.9 mg/dL (8.5-10.1); CREATININE 0.98 mg/dL (0.55-1.02); GLUCOSE 93 mg/dL (65-99); MAGNESIUM 1.7 mg/dL (2.0-2.9); POTASSIUM 3.7 mmol/L (3.5-5.1); SODIUM 137 mmol/L (136-145); TOTAL PROTEIN 6.7 g/dL (6.4-8.2); eGFR NON BLACK RACES > 60 (>60)
[2022-10-24] MEDS ORDERED: CONSULT PHARMACY - POTASSIUM & MAGNESIUM XX SCH (07:00)
[2022-10-24] MEDS: ROCEPHIN VIAL 1 GRAM 1 G in NS 100 ML IV 100 ML IV SCH (08:04)
[2022-10-24] MEDS: MAG-OX TAB PO SCH ×4 (08:05→21:41)
[2022-10-24] MEDS: ZESTORETIC 20/25 MG PO SCH (08:05)
[2022-10-24] MEDS: LANOXIN or DIGITEK PO SCH (08:05)
[2022-10-24] MEDS: TOPROL XL PO SCH ×2 (08:05→21:42)
[2022-10-24] MEDS: ELIQUIS PO SCH ×2 (08:05→21:41)
[2022-10-24] MEDS ORDERED: K-DUR TAB 20 MEQ PO SCH (09:00)
[2022-10-24] MEDS: NS + KCL 20 MEQ/L 1,000 ML with MAGNESIUM SULFATE 50% INJ VIAL 1 G IV SCH ×2 (09:08)
--- NOTE | 2022-10-24 13:53 | NOTE.SOAP ---
Soap Note Note for Day of Date of Exam: 10/24/22 Subjective Data Subjective Data: no sob/cp/edema/stroke sx- with ef 30% and trops positive- we will eval for cad by cardiac cta as long as hr 60s in am Objective Data Objective Data: pulse 60s on dig/bb and still iv cardizem at 5 mg/min- Assessment Assessment: atrial fib, cardiomyopathy ef 30%-LA clot on DOAC, etoh abuse, low albumin and proteinuria Plan Plan: change to po cardizem - wean off drip- CCTA in am to r/o cad
[2022-10-24] MEDS: CARDIZEM TAB 30 MG PLAIN PO SCH ×2 (15:39→21:41)
[2022-10-24] MEDS ORDERED: CARDIZEM INJ 125 MG VIAL IVP ONE (18:07)
[2022-10-25 05:02] LABS: BASOPHILS # (AUTO) 0.1 X10^3/uL (0.0-0.1); EOSINOPHILS # (AUTO) 0.1 x10^3/uL (0.0-0.2); EOSINOPHILS % (AUTO) 1.4 % (0.9-2.9); HEMATOCRIT 39.1 % (36.0-47.0); HEMOGLOBIN 13.4 g/dL (12.0-16.0); LYMPHOCYTES # (AUTO) 1.3 X10^3/uL (1.3-2.9); LYMPHOCYTES % (AUTO) 20.6 % (21.0-51.0); MEAN CORPUSCULAR HEMOGLOBIN 32.5 pg (27.0-34.0); MEAN CORPUSCULAR HGB CONC 34.1 g/dL (33.0-35.0); MEAN CORPUSCULAR VOLUME 95.4 fL (80.0-100.0); MEAN PLATELET VOLUME 8.9 fL (7.4-11.0); MONOCYTES # (AUTO) 0.6 x10^3/uL (0.3-0.8); MONOCYTES % (AUTO) 8.8 % (0.0-13.0); NEUTROPHILS # (AUTO) 4.3 x10^3/uL (2.2-4.8); NEUTROPHILS % (AUTO) 68.2 % (42.0-75.0); PLATELET COUNT 210 X10^3/uL (150.0-450.0); RED CELL DISTRIBUTION WIDTH 15.4 % (11.6-16.5); WHITE BLOOD COUNT 6.4 X10^3/uL (3.6-10.0)
[2022-10-25 05:13] LABS: ALANINE AMINOTRANSFERASE 46 Units/L (12-78); ALBUMIN 2.7 g/dL (3.4-5.0); ALKALINE PHOSPHATASE 107 Units/L (46-116); ASPARTATE AMINO TRANSFERASE 22 Units/L (15-37); BLOOD UREA NITROGEN 14 mg/dL (7-18); CALCIUM 8.8 mg/dL (8.5-10.1); CARBON DIOXIDE 26.5 mmol/L (21-32); CHLORIDE 103 mmol/L (98-107); COR CA(FOR HYPOALB) 9.8 mg/dL (8.5-10.1); CREATININE 1.06 mg/dL (0.55-1.02); GLUCOSE 98 mg/dL (65-99); POTASSIUM 3.8 mmol/L (3.5-5.1); SODIUM 138 mmol/L (136-145); TOTAL PROTEIN 6.5 g/dL (6.4-8.2); eGFR NON BLACK RACES 55 (>60)
[2022-10-25] MEDS: CARDIZEM TAB 30 MG PLAIN PO SCH ×3 (05:25→21:00)
[2022-10-25] MEDS ORDERED: CONSULT PHARMACY - POTASSIUM & MAGNESIUM XX SCH (06:00)
[2022-10-25] MEDS: CARDIZEM INJ 125 MG VIAL 125 MG in NS 100 ML IV 100 ML IV PRN (06:53)
--- NOTE | 2022-10-25 07:57 | NOTE.SOAP ---
Soap Note Note for Day of Date of Exam: 10/25/22 Subjective Data Subjective Data: no cp/sob/edema- hr 60 on 5 iv cardizem/po cardizem/po metoprolol/dig Objective Data Objective Data: 150/90 p60 afib- clear lungs irreg hr no edema labs: hct 39/cr 1.06 Assessment Assessment: cardiomyopathy/afib/la clot Plan Plan: CCTA today to r/o cad( look at clot too if decreased)- once that done- wean off iv cardizem and push po meds to control hr so to d/c soon
[2022-10-25] MEDS: NS + KCL 20 MEQ/L 1,000 ML with MAGNESIUM SULFATE 50% INJ VIAL 1 G IV SCH ×2 (08:36)
[2022-10-25] MEDS: ROCEPHIN VIAL 1 GRAM 1 G in NS 100 ML IV 100 ML IV SCH (08:37)
[2022-10-25] MEDS ORDERED: OMNIPAQUE 350 mg/mL 100 mL BTL 100 ML ONE (08:44)
[2022-10-25] MEDS ORDERED: NS 100 ML IV 100 ML ONE (08:44)
[2022-10-25] MEDS ORDERED: K-DUR TAB 20 MEQ PO SCH (09:00)
[2022-10-25] MEDS ORDERED: CARDIZEM TAB 30 MG PLAIN PO ONE (09:42)
[2022-10-25] MEDS: ELIQUIS PO SCH ×2 (09:53→20:39)
[2022-10-25] MEDS: LANOXIN or DIGITEK PO SCH (09:54)
[2022-10-25] MEDS: MAG-OX TAB PO SCH ×4 (09:54→20:40)
[2022-10-25] MEDS: TOPROL XL PO SCH ×2 (09:54→20:39)
[2022-10-25] MEDS: ZESTORETIC 20/25 MG PO SCH (09:54)
--- NOTE | 2022-10-25 12:55 | PCM.PROG ---
Progress Note - Progress Note for Day of Date of Exam: 10/24/22 - Subjective Subjective: IS CURRENTLY INPATIENT STATUS FOR TREATMENT OF NEW ONSET A-FIB, LA THROMBUS, HYPOMAGNESEMIA, BACTERIURIA, AND HYPOALBUMINEMIA. SHE HAS A PMH OF HTN, CHRONIC CONSTIPATION, AND ARTHRITIS. PATIENT CONTINUES TO COMPLAIN OF FATIGUE AND SHORTNESS OF BREATH, BUT DOES REPORT SLIGHT IMPROVEMENT IN SYMPTOMS TODAY. HER RHYTHM HAS REMAINED IRREGULAR BUT HAS BEEN IN THE 60s FOR THE MAJORITY OF THE NIGHT. SHE IS CURRENTLY ON A CARDIZEM DRIP. WHEN STAFF ATTEMPTED TO DISCONTINUE THE DRIP LAST NIGHT, HER HEARTRATE WOULD INCREASE TO 110-120 BPM. ON EXAMINATION THIS MORNING, HR IS IN THE 120s AND IRREGULAR. BILATERAL LUNGS ARE NOTED WITH DIMINISHED LUNG SOUNDS THROUGHOUT. ABDOMEN IS ROUND, SOFT, AND NON-TENDER WITH NORMAL BOWEL SOUNDS NOTED IN ALL QUADRANTS. GOOD RANGE OF MOTION NOTED TO UPPER AND LOWER EXTREMITIES WITH NO EDEMA NOTED. HER VITALS AT 8AM THIS MORNING WERE: 97.7-87-12-94%-146/73. LABS WERE OBTAINED. WBC 6.3, RBC 3.98, HGB 13.0, HCT 38.1, PLT COUNT 195, SODIUM 137, POTASSIUM 3.7, CHLORIDE 102, CARBON DIOXIDE 26.4, BUN 12, CREATININE 0.98, GLUCOSE 93, CALCIUM 8.9, MAGNESIUM 1.7, AST 20, ALT 50, ALK PHOS 112, TOTAL PROTEIN 6.7, ALBUMIN 2.7. AN ECHOCARDIOGRAM WAS OBTAINED ON FRIDAY. HER EJECTION FRACTION WAS 25- 30%. THERE WAS A LARGE MASS SEEN IN LA CONSISTENT WITH THROMBUS. SCLEROSIS OF THE AORTIC VALVE. RVSP 51mmHg. 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 HE PLANS TO ATTEMPT TO WEAN THE CARDIZEM DRIP TODAY. HE HAS ORDERED A CARDIAC CTA TO EVALUATE FOR CAD. IT WILL BE OBTAINED IN THE MORNING. SHE IS CURRENTLY RECEIVING NORMAL SALINE WITH POTASSIUM AT 30 ML/HR, CARDIZEM DRIP, ROCEPHIN 1G IV DAILY, ELIQUIS 10MG PO BID, MAG OX 400MG BID, TOPROL XL 50MG BID, DIGOXIN 0.125MG DAILY, AND ZESTORETIC 20/25MG DAILY. WE WILL ATTEMPT TO WEAN THE CARDIZEM DRIP. OTHERWISE, WE WILL FOLLOW UP WITH AM LABS AND CONTINUE TO MONITOR. TIME SPENT ON CLINICAL ASSESSMENT, REVIEWING LABS AND IMAGING, DECISION MAKING, AND DOCUMENTATION GREATER THAN 45 MINUTES. - Past Medical Family Social History Past Med/Fam/Surg Hx: No changes since H&P Allergies: Allergies aspirin Adverse Reaction (Verified 10/21/22 12:41) Pt states it makes her "stomach hurt really bad" - Review of Systems ROS: No change since H&P - Vital Signs and I&O's Vital Signs: Vital Signs Temperature 97.7 F Temperature 97.2 F Pulse Rate 76 Pulse Rate 68 Pulse Rate 63 Pulse Rate 84 Pulse Rate 64 Pulse Rate 63 Pulse Rate 63 Pulse Rate 61 Pulse Rate 62 Pulse Rate 62 Pulse Rate 62 Pulse Rate 62 Respiratory Rate 26 Respiratory Rate 21 Respiratory Rate 13 Respiratory Rate 22 Respiratory Rate 20 Respiratory Rate 26 Respiratory Rate 16 Respiratory Rate 18 Respiratory Rate 18 Respiratory Rate 17 Respiratory Rate 17 Blood Pressure 114/73 Blood Pressure 155/85 Blood Pressure 151/91 Blood Pressure 149/85 Blood Pressure 149/85 Blood Pressure 152/86 Blood Pressure 152/86 O2 Sat by Pulse Oximetry 77 O2 Sat by Pulse Oximetry 95 O2 Sat by Pulse Oximetry 93 O2 Sat by Pulse Oximetry 95 O2 Sat by Pulse Oximetry 95 O2 Sat by Pulse Oximetry 97 O2 Sat by Pulse Oximetry 90 O2 Sat by Pulse Oximetry 91 O2 Sat by Pulse Oximetry 91 O2 Sat by Pulse Oximetry 94 O2 Sat by Pulse Oximetry 94 Intake and Output: Intake & Output 10/23/22 10/24/22 10/25/22 10/26/22 11:59 11:59 11:59 11:59 Intake Total 50 / 2786.8 / 2786.8 1628.7 / 1628.7 55.0 / 55.0 Balance / 50 2786.8 / 2786.8 1628.7 / 1628.7 55.0 / 55.0 - Physical Exam Oriented: Normal Eyes: Normal Ear: Normal Nose: Normal Throat: Normal Respiratory: Generalized, Diminished Cardiovascular: Tachycardia, Irregular : Normal Auscultation: Bowel Sounds: Normal Palpation: Normal Tenderness: Normal Skin: Normal Musculoskeletal: Normal Psychiatric: Normal Mood Description: Calm Affect: Normal Speech Pattern: Clear, Appropriate - Laboratory and Diagnostics Result Diagrams: 10/25/22 04:23 10/25/22 04:23 Labs: 10/22/22 12:00 Urine,Clean Catch Urine Culture - Final Laboratory WBC 6.4 X10^3/uL (3.6-10.0) 10/25/22 04: RBC 4.10 X10^6/uL (3.5-5.4) 10/25/22 04: Hgb 13.4 g/dL (12.0-16.0) 10/25/22 04: Hct 39.1 % (36.0-47.0) 10/25/22 04: MCV 95.4 fL (80.0-100.0) 10/25/22 04: MCH 32.5 pg (27.0-34.0) 10/25/22 04: MCHC 34.1 g/dL (33.0-35.0) 10/25/22: RDW 15.4 % (11.6-16.5) 10/25/22 04: Plt Count 210 X10^3/uL (150.0-450.0) 10/25/22 04: MPV 8.9 fL (7.4-11.0) 10/25/22 04: Neut % (Auto) 68.2 % (42.0-75.0) 10/25/22 04: Lymph % (Auto) 20.6 % (21.0-51.0) L 10/25/22 04: [place] % (Auto) 8.8 % (0.0-13.0) 10/25/22 04: Eos % (Auto) 1.4 % (0.9-2.9) 10/25/22 04: Baso % (Auto) 1.0 % (0.2-1.0) 10/25/22 04: Neut # (Auto) 4.3 x10^3/uL (2.2-4.8) 10/25/22 04: Lymph # (Auto) 1.3 X10^3/uL (1.3-2.9) 10/25/22 04:23 [place] # (Auto) 0.6 x10^3/uL (0.3-0.8) 10/25/22 04: Eos # (Auto) 0.1 x10^3/uL (0.0-0.2) 10/25/22 04:23 Baso # (Auto) 0.1 X10^3/uL (0.0-0.1) 10/25/22 04:23 Absolute Nucleated RBC 0.1 /100WBC 10/25/22 04:23 Sodium 138 mmol/L (136-145) 10/25/22 04:23 Corrected Sodium TNP 10/25/22 04:23 Potassium 3.8 mmol/L (3.5-5.1) 10/25/22 04:23 Chloride 103 mmol/L (98-107) 10/25/22 04:23 Carbon Dioxide 26.5 mmol/L (21-32) 10/25/22 04:23 BUN 14 mg/dL (7-18) 10/25/22 04:23 Creatinine 1.06 mg/dL (0.55-1.02) H 10/25/22 04:23 Est GFR (MDRD) Af Amer > 60 (>60) 10/25/22 04:23 Est GFR (MDRD) Non-Af 55 (>60) L 10/25/22 04:23 Glucose 98 mg/dL (65-99) 10/25/22 04:23 Calcium 8.8 mg/dL (8.5-10.1) 10/25/22 04:23 Corrected Calcium 9.8 mg/dL (8.5-10.1) 10/25/22 04:23 Magnesium 1.7 mg/dL (2.0-2.9) L 10/25/22 04:23 Total Bilirubin 0.80 mg/dL (0.2-1.0) 10/25/22 04:23 AST 22 Units/L (15-37) 10/25/22 04:23 ALT 46 Units/L (12-78) 10/25/22 04:23 Alkaline Phosphatase 107 Units/L (46-116) 10/25/22 04:23 Creatine Kinase 58 Units/L (26-192) 10/21/22 21:45 Troponin I High Sens 62.2 ng/L (4.0-60.0) H* 10/21/22 21:45 Total Protein 6.5 g/dL (6.4-8.2) 10/25/22 04:23 Albumin 2.7 g/dL (3.4-5.0) L 10/25/22 04:23 Globulin 3.8 g/dL (2.5-4.5) 10/25/22 04:23 Albumin/Globulin Ratio 0.7 Ratio (1.1-2.1) L 10/25/22 04: TSH 3rd Generation 2.091 uIU/mL (0.358-3.74) 10/22/22 11:47 Specimen Type Clean catch urine 10/22/22 12:00 Urine Color Yellow (YELLOW) 10/22/22 12:00 Urine Appearance Clear (CLEAR) 10/22/22 12:00 Urine pH 7.0 (5.0 - 8.0) 10/22/22 12:00 Ur Specific [place] 1.010 (1.000-1.030) 10/22/22 12:00 Urine Protein 2+ (NEGATIVE) 10/22/22 12:00 Urine Glucose (UA) Negative (NEGATIVE) 10/22/22 12:00 Urine Ketones Negative (NEGATIVE) 10/22/22 12:00 Urine Blood 1+ (NEGATIVE) 10/22/22 12:00 Urine Nitrite Negative (NEGATIVE) 10/22/22 12:00 Urine Bilirubin Negative (NEGATIVE) 10/22/22 12:00 Urine Urobilinogen 2+ (NORMAL) 10/22/22 12:00 Ur Leukocyte Esterase 1+ (NEGATIVE) 10/22/22 12:00 Urine RBC 0-2 /HPF (0-3) 10/22/22 12:00 Urine WBC 0-2 /HPF (0-5) 10/22/22 12:00 Ur Squamous Epith Cells Many /HPF (NEGATIVE) 10/22/22 12:00 Urine Bacteria Trace /HPF (NEGATIVE) 10/22/22 12:00 Urine Mucus Few /HPF (NEGATIVE) 10/22/22 12:00 Ur Culture Indicated? No/not indicated 10/22/22 12:00 - Plan (1) New onset atrial fibrillation Status: Acute Plan: NS WITH POTASSIUM AND MAGNESIUM AT KVO, CARDIZEM DRIP, ELIQUIS 10MG BID, LOPRESSOR 25MG Q6H, DIGOXIN 0.125MG DAILY, LISINOPRIL/HCTZ, MAGNESIUM OXIDE 400MG BID. (2) LA thrombus Status: Acute (3) Hypomagnesemia Status: Acute (4) Bacteriuria Status: Acute Plan: ROCEPHIN 1G IV DAILY (5) HTN (hypertension) Status: Chronic Qualifiers: Hypertension type: primary hypertension Qualified Code(s): I10 - Essential (primary) hypertension Plan: CONTINUE LISINOPRIL/HCTZ
--- NOTE | 2022-10-25 13:07 | PCM.PROG ---
Progress Note - Progress Note for Day of Date of Exam: 10/25/22 - Subjective Subjective: IS CURRENTLY INPATIENT STATUS FOR TREATMENT OF NEW ONSET A-FIB, LA THROMBUS, HYPOMAGNESEMIA, BACTERIURIA, AND HYPOALBUMINEMIA. SHE HAS A PMH OF HTN, CHRONIC CONSTIPATION, AND ARTHRITIS. PATIENT CONTINUES TO COMPLAIN OF FATIGUE AND SHORTNESS OF BREATH, BUT DOES REPORT SLIGHT IMPROVEMENT IN SYMPTOMS TODAY. HER HR HAS BEEN IN THE 60s-80s THROUGHOUT THE NIGHT. ON EXAMINATION, HEART IS REGULAR IN RATE AND RHYTHM. BILATERAL LUNGS ARE NOTED WITH DIMINISHED LUNG SOUNDS THROUGHOUT. ABDOMEN IS ROUND, SOFT, AND NON-TENDER WITH NORMAL BOWEL SOUNDS NOTED IN ALL QUADRANTS. GOOD RANGE OF MOTION NOTED TO UPPER AND LOWER EXTREMITIES WITH NO EDEMA NOTED. HER VITALS AT 8AM THIS MORNING WERE: 97.2-63-26-97%-155/85. LABS WERE OBTAINED. WBC 6.4, RBC 4.10, HGB 13.4, HCT 39.1, PLT COUNT 210, SODIUM 138, POTASSIUM 3.8, CHLORIDE 103, BUN 14, CREATININE 1.06, GLUCOSE 98, CALCIUM 8.8, MAGNESIUM 1.7, AST 22, ALT 46, ALK PHOS 107, TOTAL PROTEIN 6.5, ALBUMIN 2.7. 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 HE PLANS TO ATTEMPT TO WEAN THE CARDIZEM DRIP TODAY. HE HAS ORDERED A CARDIAC CTA TO EVALUATE FOR CAD. IT WILL BE OBTAINED THIS MORNING. SHE IS CURRENTLY RECEIVING NORMAL SALINE WITH POTASSIUM AT 30 ML/HR, A CARDIZEM DRIP, ROCEPHIN 1G IV DAILY, ELIQUIS 10MG PO BID, MAG OX 400MG BID, TOPROL XL 50MG BID, DIGOXIN 0.125MG DAILY, AND ZESTORETIC 20/25MG DAILY. WE WILL WEAN HER OFF OF THE CARDIZEM DRIP TODAY AND CONVERT TO PO CARDIZEM. OTHERWISE, WE WILL FOLLOW UP WITH AM LABS AND CONTINUE TO MONITOR. TIME SPENT ON CLINICAL ASSESSMENT, REVIEWING LABS AND IMAGING, DECISION MAKING, AND DOCUMENTATION GREATER THAN 45 MINUTES. - Past Medical Family Social History Past Med/Fam/Surg Hx: No changes since H&P Allergies: Allergies aspirin Adverse Reaction (Verified 10/21/22 12:41) Pt states it makes her "stomach hurt really bad" - Review of Systems ROS: No change since H&P - Vital Signs and I&O's Vital Signs: Vital Signs Temperature 97.7 F Temperature 97.2 F Pulse Rate 76 Pulse Rate 68 Pulse Rate 63 Pulse Rate 84 Pulse Rate 64 Pulse Rate 63 Pulse Rate 63 Pulse Rate 61 Pulse Rate 62 Pulse Rate 62 Respiratory Rate 26 Respiratory Rate 21 Respiratory Rate 13 Respiratory Rate 22 Respiratory Rate 20 Respiratory Rate 26 Respiratory Rate 16 Respiratory Rate 18 Respiratory Rate 18 Blood Pressure 114/73 Blood Pressure 155/85 Blood Pressure 151/91 Blood Pressure 149/85 Blood Pressure 149/85 O2 Sat by Pulse Oximetry 98 O2 Sat by Pulse Oximetry 77 O2 Sat by Pulse Oximetry 95 O2 Sat by Pulse Oximetry 93 O2 Sat by Pulse Oximetry 95 O2 Sat by Pulse Oximetry 95 O2 Sat by Pulse Oximetry 97 O2 Sat by Pulse Oximetry 90 O2 Sat by Pulse Oximetry 91 O2 Sat by Pulse Oximetry 91 Intake and Output: Intake & Output 10/23/22 10/24/22 10/25/22 10/26/22 11:59 11:59 11:59 11:59 Intake Total 2786.8 / 2786.8 1628.7 / 1628.7 55.0 / 55.0 Balance / 50 2786.8 / 2786.8 1628.7 / 1628.7 55.0 / 55.0 - Physical Exam Oriented: Normal Eyes: Normal Ear: Normal Nose: Normal Throat: Normal Respiratory: Generalized, Diminished Cardiovascular: Tachycardia, Irregular : Normal Auscultation: Bowel Sounds: Normal Palpation: Normal Tenderness: Normal Skin: Normal Musculoskeletal: Normal Psychiatric: Normal Mood Description: Calm Affect: Normal Speech Pattern: Clear, Appropriate - Laboratory and Diagnostics Result Diagrams: 10/25/22 04:23 10/25/22 04:23 Labs: 10/22/22 12:00 Urine,Clean Catch Urine Culture - Final Laboratory WBC 6.4 X10^3/uL (3.6-10.0) 10/25/22 04: RBC 4.10 X10^6/uL (3.5-5.4) 10/25/22 04: Hgb 13.4 g/dL (12.0-16.0) 10/25/22 04:23 Hct 39.1 % (36.0-47.0) 10/25/22 04:23 MCV 95.4 fL (80.0-100.0) 10/25/22 04: MCH 32.5 pg (27.0-34.0) 10/25/22 04: MCHC 34.1 g/dL (33.0-35.0) 10/25/22 04: RDW 15.4 % (11.6-16.5) 10/25/22 04: Plt Count 210 X10^3/uL (150.0-450.0) 10/25/22 04: MPV 8.9 fL (7.4-11.0) 10/25/22 04: Neut % (Auto) 68.2 % (42.0-75.0) 10/25/22 04: Lymph % (Auto) 20.6 % (21.0-51.0) L 10/25/22 04: [place] % (Auto) 8.8 % (0.0-13.0) 10/25/22 04: Eos % (Auto) 1.4 % (0.9-2.9) 10/25/22 04: Baso % (Auto) 1.0 % (0.2-1.0) 10/25/22 04: Neut # (Auto) 4.3 x10^3/uL (2.2-4.8) 10/25/22 04: Lymph # (Auto) 1.3 X10^3/uL (1.3-2.9) 10/25/22 04:23 [place] # (Auto) 0.6 x10^3/uL (0.3-0.8) 10/25/22 04: Eos # (Auto) 0.1 x10^3/uL (0.0-0.2) 10/25/22 04: Baso # (Auto) 0.1 X10^3/uL (0.0-0.1) 10/25/22 04: Absolute Nucleated RBC 0.1 /100WBC 10/25/22 04: Sodium 138 mmol/L (136-145) 10/25/22 04:23 Corrected Sodium TNP 10/25/22 04: Potassium 3.8 mmol/L (3.5-5.1) 10/25/22 04: Chloride 103 mmol/L (98-107) 10/25/22 04:23 Carbon Dioxide 26.5 mmol/L (21-32) 10/25/22 04:23 BUN 14 mg/dL (7-18) 10/25/22 04:23 Creatinine 1.06 mg/dL (0.55-1.02) H 10/25/22 04:23 Est GFR (MDRD) Af Amer > 60 (>60) 10/25/22 04:23 Est GFR (MDRD) Non-Af 55 (>60) L 10/25/22 04:23 Glucose 98 mg/dL (65-99) 10/25/22 04:23 Calcium 8.8 mg/dL (8.5-10.1) 10/25/22 04:23 Corrected Calcium 9.8 mg/dL (8.5-10.1) 10/25/22 04:23 Magnesium 1.7 mg/dL (2.0-2.9) L 10/25/22 04:23 Total Bilirubin 0.80 mg/dL (0.2-1.0) 10/25/22 04:23 AST 22 Units/L (15-37) 10/25/22 04:23 ALT 46 Units/L (12-78) 10/25/22 04:23 Alkaline Phosphatase 107 Units/L (46-116) 10/25/22 04:23 Creatine Kinase 58 Units/L (26-192) 10/21/22 21:45 Troponin I High Sens 62.2 ng/L (4.0-60.0) H* 10/21/22 21:45 Total Protein 6.5 g/dL (6.4-8.2) 10/25/22 04:23 Albumin 2.7 g/dL (3.4-5.0) L 10/25/22 04:23 Globulin 3.8 g/dL (2.5-4.5) 10/25/22 04:23 Albumin/Globulin Ratio 0.7 Ratio (1.1-2.1) L 10/25/22 04:23 TSH 3rd Generation 2.091 uIU/mL (0.358-3.74) 10/22/22 11:47 Specimen Type Clean catch urine 10/22/22 12:00 Urine Color Yellow (YELLOW) 10/22/22 12:00 Urine Appearance Clear (CLEAR) 10/22/22 12:00 Urine pH 7.0 (5.0 - 8.0) 10/22/22 12:00 Ur Specific [place] 1.010 (1.000-1.030) 10/22/22 12:00 Urine Protein 2+ (NEGATIVE) 10/22/22 12:00 Urine Glucose (UA) Negative (NEGATIVE) 10/22/22 12:00 Urine Ketones Negative (NEGATIVE) 10/22/22 12:00 Urine Blood 1+ (NEGATIVE) 10/22/22 12:00 Urine Nitrite Negative (NEGATIVE) 10/22/22 12:00 Urine Bilirubin Negative (NEGATIVE) 10/22/22 12:00 Urine Urobilinogen 2+ (NORMAL) 10/22/22 12:00 Ur Leukocyte Esterase 1+ (NEGATIVE) 10/22/22 12:00 Urine RBC 0-2 /HPF (0-3) 10/22/22 12:00 Urine WBC 0-2 /HPF (0-5) 10/22/22 12:00 Ur Squamous Epith Cells Many /HPF (NEGATIVE) 10/22/22 12:00 Urine Bacteria Trace /HPF (NEGATIVE) 10/22/22 12:00 Urine Mucus Few /HPF (NEGATIVE) 10/22/22 12:00 Ur Culture Indicated? No/not indicated 10/22/22 12:00 - Plan (1) New onset atrial fibrillation Status: Acute Plan: NS WITH POTASSIUM AND MAGNESIUM AT KVO, CARDIZEM DRIP, ELIQUIS 10MG BID, LOPRESSOR 25MG Q6H, DIGOXIN 0.125MG DAILY, LISINOPRIL/HCTZ, MAGNESIUM OXIDE 400MG BID. (2) LA thrombus Status: Acute (3) Hypomagnesemia Status: Acute (4) Bacteriuria Status: Acute Plan: ROCEPHIN 1G IV DAILY (5) HTN (hypertension) Status: Chronic Qualifiers: Hypertension type: primary hypertension Qualified Code(s): I10 - Essential (primary) hypertension Plan: CONTINUE LISINOPRIL/HCTZ
[2022-10-26] MEDS: CARDIZEM TAB 30 MG PLAIN PO SCH ×3 (05:12→20:09)
[2022-10-26 05:34] LABS: BASOPHILS # (AUTO) 0.1 X10^3/uL (0.0-0.1); BASOPHILS % (AUTO) 1.5 % (0.2-1.0); EOSINOPHILS # (AUTO) 0.1 x10^3/uL (0.0-0.2); EOSINOPHILS % (AUTO) 2.3 % (0.9-2.9); HEMATOCRIT 41.1 % (36.0-47.0); HEMOGLOBIN 14.1 g/dL (12.0-16.0); LYMPHOCYTES # (AUTO) 1.4 X10^3/uL (1.3-2.9); LYMPHOCYTES % (AUTO) 21.3 % (21.0-51.0); MEAN CORPUSCULAR HEMOGLOBIN 32.4 pg (27.0-34.0); MEAN CORPUSCULAR HGB CONC 34.2 g/dL (33.0-35.0); MEAN CORPUSCULAR VOLUME 94.8 fL (80.0-100.0); MEAN PLATELET VOLUME 8.6 fL (7.4-11.0); MONOCYTES # (AUTO) 0.6 x10^3/uL (0.3-0.8); MONOCYTES % (AUTO) 9.4 % (0.0-13.0); NEUTROPHILS # (AUTO) 4.2 x10^3/uL (2.2-4.8); NEUTROPHILS % (AUTO) 65.5 % (42.0-75.0); PLATELET COUNT 225 X10^3/uL (150.0-450.0); RED BLOOD COUNT 4.34 X10^6/uL (3.5-5.4); RED CELL DISTRIBUTION WIDTH 15.6 % (11.6-16.5); WHITE BLOOD COUNT 6.4 X10^3/uL (3.6-10.0)
[2022-10-26 05:53] LABS: ALANINE AMINOTRANSFERASE 44 Units/L (12-78); ALBUMIN 2.7 g/dL (3.4-5.0); ALKALINE PHOSPHATASE 110 Units/L (46-116); ASPARTATE AMINO TRANSFERASE 24 Units/L (15-37); BLOOD UREA NITROGEN 15 mg/dL (7-18); CALCIUM 8.9 mg/dL (8.5-10.1); CARBON DIOXIDE 25.2 mmol/L (21-32); CHLORIDE 103 mmol/L (98-107); COR CA(FOR HYPOALB) 9.9 mg/dL (8.5-10.1); CREATININE 1.06 mg/dL (0.55-1.02); GLUCOSE 85 mg/dL (65-99); MAGNESIUM 1.9 mg/dL (2.0-2.9); POTASSIUM 4.3 mmol/L (3.5-5.1); SODIUM 137 mmol/L (136-145); TOTAL PROTEIN 6.8 g/dL (6.4-8.2); eGFR NON BLACK RACES 55 (>60)
--- NOTE | 2022-10-26 07:20 | CT ---
HISTORYcardiomyopathy ef 30%, short of breathSTUDYCardiac CTA without calcium scoringCOMPARISONChest one view from 10/21/2022.TECHNIQUEAxial CT imaging was performed through the chest focusing on the heart and coronary arteries after the administration of IV contrast. 3D reconstructions utilizing axial MIPS imaging was performed and reviewed. Dose reduction techniques including Automated Exposure Control (AEC) and adjustment of mA and kV were utilized.FINDINGSDominance: Right.Right coronary artery: Contains a small amount of calcification with associated less than 50 percent stenosis along the proximal half of the vessel. No other significant abnormality.Posterior descending artery: No significant abnormality.Left coronary artery: A small amount of calcification is seen just above the vessel bifurcation resulting in less than 50 percent stenosis. No other significant abnormality.LAD artery: A moderate amount of calcified and noncalcified plaque is present along the proximal 3rd of the vessel with associated 50-69 percent stenosis. No other significant abnormality.Left circumflex artery: A small amount of calcified and noncalcified plaque near the vessel origin results in less than 50 percent stenosis.Heart: Mildly enlarged without a significant pericardial effusion. A moderate amount of thrombus is seen within the left atrium. There is an a Osmar burnham fraction of 24 percent.Thoracic aorta: Normal in caliber with mild atherosclerosis.Pulmonary arteries: No evidence of central pulmonary emboli.Mediastinum: No significant abnormality.Lungs: There is mild emphysema with mild pulmonary edema and a trace right pleural effusion.Additional findings: None.IMPRESSION1. Mild cardiomegaly with abnormal ejection fraction of 24 percent and a moderate amount of thrombus in the left atrium. Correlation with an echocardiogram is recommended.2. Moderate coronary atherosclerosis with 50-69 percent stenosis proximally along the LAD artery and less than 50 percent stenosis of the right coronary, left coronary and left circumflex arteries.3. Additional findings as above.Electronically signed by: Hermilo Hartmann (Oct 26, 2022 07:18:14)
[2022-10-26] MEDS: ROCEPHIN VIAL 1 GRAM 1 G in NS 100 ML IV 100 ML IV SCH (08:37)
[2022-10-26] MEDS: MAG-OX TAB PO SCH ×2 (08:38→20:09)
[2022-10-26] MEDS: NS + KCL 20 MEQ/L 1,000 ML with MAGNESIUM SULFATE 50% INJ VIAL 1 G IV SCH ×2 (08:38)
[2022-10-26] MEDS: LANOXIN or DIGITEK PO SCH (08:38)
[2022-10-26] MEDS: ZESTORETIC 20/25 MG PO SCH (08:38)
[2022-10-26] MEDS: TOPROL XL PO SCH ×2 (08:38→20:09)
[2022-10-26] MEDS: ELIQUIS PO SCH ×2 (08:38→20:09)
--- NOTE | 2022-10-26 11:06 | EKG ---
Test Reason : ARRYTHMIA Blood Pressure : */* mmHG Vent. Rate : 88 BPM Atrial Rate : 264 BPM P-R Int : * ms QRS Dur : 82 ms QT Int : 444 ms P-R-T Axes : 150 -41 84 degrees QTc Int : 537 ms Atrial flutter with variable AV block with premature ventricular or aberrantly conducted complexes Left axis deviation Pulmonary disease pattern Moderate voltage criteria for LVH, may be normal variant ( R in aVL , [place] product ) Nonspecific T wave abnormality Abnormal ECG When compared with ECG of 21-OCT-2022 21:08, ST less elevated in Anterior leads T wave inversion now evident in Anterior leads Confirmed by Abiel Diego ([id number]) on 10/28/2022 8:04:27 AM Referred By: Confirmed By: Abiel Diego
[2022-10-26] MEDS ORDERED: CARDIZEM TAB 30 MG PLAIN PO ONE (11:10)
[2022-10-27] MEDS: CARDIZEM TAB 30 MG PLAIN PO SCH ×2 (02:23→08:28)
[2022-10-27 05:45] LABS: BASOPHILS # (AUTO) 0.1 X10^3/uL (0.0-0.1); BASOPHILS % (AUTO) 1.5 % (0.2-1.0); EOSINOPHILS # (AUTO) 0.1 x10^3/uL (0.0-0.2); EOSINOPHILS % (AUTO) 2.3 % (0.9-2.9); HEMATOCRIT 43.2 % (36.0-47.0); HEMOGLOBIN 14.6 g/dL (12.0-16.0); LYMPHOCYTES # (AUTO) 1.4 X10^3/uL (1.3-2.9); LYMPHOCYTES % (AUTO) 23.1 % (21.0-51.0); MEAN CORPUSCULAR HEMOGLOBIN 32.3 pg (27.0-34.0); MEAN CORPUSCULAR HGB CONC 33.8 g/dL (33.0-35.0); MEAN CORPUSCULAR VOLUME 95.8 fL (80.0-100.0); MEAN PLATELET VOLUME 8.9 fL (7.4-11.0); MONOCYTES # (AUTO) 0.6 x10^3/uL (0.3-0.8); MONOCYTES % (AUTO) 9.8 % (0.0-13.0); NEUTROPHILS # (AUTO) 3.9 x10^3/uL (2.2-4.8); NEUTROPHILS % (AUTO) 63.3 % (42.0-75.0); PLATELET COUNT 252 X10^3/uL (150.0-450.0); RED BLOOD COUNT 4.51 X10^6/uL (3.5-5.4); RED CELL DISTRIBUTION WIDTH 15.1 % (11.6-16.5); WHITE BLOOD COUNT 6.1 X10^3/uL (3.6-10.0)
[2022-10-27 05:55] LABS: ALANINE AMINOTRANSFERASE 41 Units/L (12-78); ALBUMIN 2.8 g/dL (3.4-5.0); ALKALINE PHOSPHATASE 113 Units/L (46-116); ASPARTATE AMINO TRANSFERASE 20 Units/L (15-37); BLOOD UREA NITROGEN 14 mg/dL (7-18); CALCIUM 9.1 mg/dL (8.5-10.1); CARBON DIOXIDE 28.9 mmol/L (21-32); CHLORIDE 102 mmol/L (98-107); COR CA(FOR HYPOALB) 10.1 mg/dL (8.5-10.1); CREATININE 1.03 mg/dL (0.55-1.02); GLUCOSE 86 mg/dL (65-99); MAGNESIUM 1.9 mg/dL (2.0-2.9); POTASSIUM 3.8 mmol/L (3.5-5.1); SODIUM 137 mmol/L (136-145); TOTAL PROTEIN 7.1 g/dL (6.4-8.2); eGFR NON BLACK RACES 57 (>60)
[2022-10-27] MEDS ORDERED: CONSULT PHARMACY - POTASSIUM & MAGNESIUM XX SCH (07:00)
[2022-10-27] MEDS: LANOXIN or DIGITEK PO SCH (08:26)
[2022-10-27] MEDS: MAG-OX TAB PO SCH ×3 (08:26→10:42)
[2022-10-27] MEDS: TOPROL XL PO SCH (08:27)
[2022-10-27] MEDS: ZESTORETIC 20/25 MG PO SCH (08:27)
[2022-10-27] MEDS: ELIQUIS PO SCH (08:28)
[2022-10-27] MEDS: ROCEPHIN VIAL 1 GRAM 1 G in NS 100 ML IV 100 ML IV SCH (08:28)
[2022-10-27 08:48] VITALS: TEMP 97.8
[2022-10-27] MEDS ORDERED: K-DUR TAB 20 MEQ PO SCH (09:00)
[2022-10-27 10:33] VITALS: BP 154/87; PULSE 62
[2022-10-27] MEDS: NS + KCL 20 MEQ/L 1,000 ML with MAGNESIUM SULFATE 50% INJ VIAL 1 G IV SCH ×2 (10:33)
[2022-10-27 11:03] VITALS: RESP 20; O2SAT 100
--- NOTE | 2022-10-27 13:14 | PCM.PROG ---
Progress Note Progress Note for Day of Date of Exam: 10/26/22 Subjective Subjective: Patient seen at bedside, no events overnight. Patient is currently admitted for new-onset atrial fibrillation, cardiomyopathy and LA thrombus. Dr Montelongo has been consulted. She was weaned off cardizem drip and switched to PO. Her HR has been fairly stable. She denies cardiac symptoms. Labs/imaging reviewed - K: 4.3 BUN/Cr 15/1.06 - Cardiac CT: EF 24%, mod atherosclerosis 50-69% in LAD. Plan: follow recommendations as per cardiology. Continue current cardiac meds including diltiazem, metoprolol succinate, digoxin and Eliquis. Patient was stable for discharge but in the afternoon her HR was back up in the 110-120s. Her medications were increased and she will be monitored in the ICU. Continue telemetry. Monitor AM labs/imaging. Past Medical Family Social History Past Med/Fam/Surg Hx: No changes since H&P Allergies: Allergies aspirin Adverse Reaction (Verified 10/21/22 12:41) Pt states it makes her "stomach hurt really bad" Review of Systems ROS: No change since H&P Vital Signs and I&O's Vital Signs: Vital Signs Temperature 97.8 F Temperature 98.2 F Pulse Rate 63 Pulse Rate 67 Pulse Rate 68 Pulse Rate 67 Pulse Rate 66 Pulse Rate 80 Pulse Rate 119 Pulse Rate 71 Pulse Rate 105 Respiratory Rate 23 Respiratory Rate 20 Respiratory Rate 14 Respiratory Rate 16 Respiratory Rate 16 Respiratory Rate 22 Respiratory Rate 17 Respiratory Rate 15 Blood Pressure 154/78 Blood Pressure 145/85 Blood Pressure 141/88 Blood Pressure 178/83 Blood Pressure 124/77 Blood Pressure 139/80 Blood Pressure 129/81 O2 Sat by Pulse Oximetry 97 O2 Sat by Pulse Oximetry 96 O2 Sat by Pulse Oximetry 97 O2 Sat by Pulse Oximetry 94 O2 Sat by Pulse Oximetry 94 O2 Sat by Pulse Oximetry 98 O2 Sat by Pulse Oximetry 94 O2 Sat by Pulse Oximetry 90 Intake and Output: Intake & Output 10/24/22 10/25/22 10/26/22 10/27/22 23:59 23:59 23:59 23:59 Intake Total 1754.0 / 1754.0 1548.0 / 1548.0 2759 / 2759 690 / 690 Balance 1754.0 / 1754.0 1548.0 / 1548.0 2759 / 2759 690 / 690 Physical Exam Oriented: Normal Eyes: Normal Ear: Normal Nose: Normal Throat: Normal Respiratory: Normal Cardiovascular: Tachycardia and Irregular Auscultation: Bowel Sounds: Normal Tenderness: Normal Skin: Normal Musculoskeletal: Normal Psychiatric: Normal Mood Description: Calm Affect: Normal Speech Pattern: Clear and Appropriate Laboratory and Diagnostics 10/27/22 04:54 10/27/22 04:54 Labs: 10/22/22 12:00 Urine,Clean Catch Urine Culture - Final Laboratory WBC 6.1 X10^3/uL (3.6-10.0) 10/27/22 04:54 RBC 4.51 X10^6/uL (3.5-5.4) 10/27/22 04:54 Hgb 14.6 g/dL (12.0-16.0) 10/27/22 04:54 Hct 43.2 % (36.0-47.0) 10/27/22 04:54 MCV 95.8 fL (80.0-100.0) 10/27/22 04:54 MCH 32.3 pg (27.0-34.0) 10/27/22 04:54 MCHC 33.8 g/dL (33.0-35.0) 10/27/22 04:54 RDW 15.1 % (11.6-16.5) 10/27/22 04:54 Plt Count 252 X10^3/uL (150.0-450.0) 10/27/22 04:54 MPV 8.9 fL (7.4-11.0) 10/27/22 04:54 Neut % (Auto) 63.3 % (42.0-75.0) 10/27/22 04:54 Lymph % (Auto) 23.1 % (21.0-51.0) 10/27/22 04:54 [place] % (Auto) 9.8 % (0.0-13.0) 10/27/22 04:54 Eos % (Auto) 2.3 % (0.9-2.9) 10/27/22 04:54 Baso % (Auto) 1.5 % (0.2-1.0) H 10/27/22 04:54 Neut # (Auto) 3.9 x10^3/uL (2.2-4.8) 10/27/22 04:54 Lymph # (Auto) 1.4 X10^3/uL (1.3-2.9) 10/27/22 04:54 [place] # (Auto) 0.6 x10^3/uL (0.3-0.8) 10/27/22 04:54 Eos # (Auto) 0.1 x10^3/uL (0.0-0.2) 10/27/22 04:54 Baso # (Auto) 0.1 X10^3/uL (0.0-0.1) 10/27/22 04:54 Absolute Nucleated RBC 0.0 /100WBC 10/27/22 04:54 Sodium 137 mmol/L (136-145) 10/27/22 04:54 Corrected Sodium TNP 10/27/22 04:54 Potassium 3.8 mmol/L (3.5-5.1) 10/27/22 04:54 Chloride 102 mmol/L (98-107) 10/27/22 04:54 Carbon Dioxide 28.9 mmol/L (21-32) 10/27/22 04:54 BUN 14 mg/dL (7-18) 10/27/22 04:54 Creatinine 1.03 mg/dL (0.55-1.02) H 10/27/22 04:54 Est GFR (MDRD) Af Amer > 60 (>60) 10/27/22 04:54 Est GFR (MDRD) Non-Af 57 (>60) L 10/27/22 04:54 Glucose 86 mg/dL (65-99) 10/27/22 04:54 Calcium 9.1 mg/dL (8.5-10.1) 10/27/22 04:54 Corrected Calcium 10.1 mg/dL (8.5-10.1) 10/27/22 04:54 Magnesium 1.9 mg/dL (2.0-2.9) L 10/27/22 04:54 Total Bilirubin 0.70 mg/dL (0.2-1.0) 10/27/22 04:54 AST 20 Units/L (15-37) 10/27/22 04:54 ALT 41 Units/L (12-78) 10/27/22 04:54 Alkaline Phosphatase 113 Units/L (46-116) 10/27/22 04:54 Creatine Kinase 58 Units/L (26-192) 10/21/22 21:45 Troponin I High Sens 62.2 ng/L (4.0-60.0) H* 10/21/22 21:45 Total Protein 7.1 g/dL (6.4-8.2) 10/27/22 04:54 Albumin 2.8 g/dL (3.4-5.0) L 10/27/22 04:54 Globulin 4.3 g/dL (2.5-4.5) 10/27/22 04:54 Albumin/Globulin Ratio 0.7 Ratio (1.1-2.1) L 10/27/22 04:54 TSH 3rd Generation 2.091 uIU/mL (0.358-3.74) 10/22/22 11:47 Specimen Type Clean catch urine 10/22/22 12:00 Urine Color Yellow (YELLOW) 10/22/22 12:00 Urine Appearance Clear (CLEAR) 10/22/22 12:00 Urine pH 7.0 (5.0 - 8.0) 10/22/22 12:00 Ur Specific [place] 1.010 (1.000-1.030) 10/22/22 12:00 Urine Protein 2+ (NEGATIVE) 10/22/22 12:00 Urine Glucose (UA) Negative (NEGATIVE) 10/22/22 12:00 Urine Ketones Negative (NEGATIVE) 10/22/22 12:00 Urine Blood 1+ (NEGATIVE) 10/22/22 12:00 Urine Nitrite Negative (NEGATIVE) 10/22/22 12:00 Urine Bilirubin Negative (NEGATIVE) 10/22/22 12:00 Urine Urobilinogen 2+ (NORMAL) 10/22/22 12:00 Ur Leukocyte Esterase 1+ (NEGATIVE) 10/22/22 12:00 Urine RBC 0-2 /HPF (0-3) 10/22/22 12:00 Urine WBC 0-2 /HPF (0-5) 10/22/22 12:00 Ur Squamous Epith Cells Many /HPF (NEGATIVE) 10/22/22 12:00 Urine Bacteria Trace /HPF (NEGATIVE) 10/22/22 12:00 Urine Mucus Few /HPF (NEGATIVE) 10/22/22 12:00 Ur Culture Indicated? No/not indicated 10/22/22 12:00 Plan (1) New onset atrial fibrillation: Status: Acute (2) LA thrombus: Status: Acute (3) Hypomagnesemia: Status: Acute (4) HTN (hypertension): Status: Chronic Qualifiers: Hypertension type: primary hypertension Qualified Code(s): I10 - Essential (primary) hypertension Plan: CONTINUE LISINOPRIL/HCTZ (5) Cardiomyopathy: Status: Acute Qualifiers: Cardiomyopathy type: alcoholic Qualified Code(s): I42.6 - Alcoholic cardiomyopathy
== END 2022-10-27 13:10 | disposition home or self-care (01) | DRG 309 ==
LOC: MED/SURG → ICU → OBSVTOIN 11:38
PROVIDERS: ADMIT Internal Medicine; ATTEND Internal Medicine
DX: E88.09 Other disorders of plasma-protein metabolism, not elsewhere classified; R78.81 Bacteremia; I51.7 Cardiomegaly; I10 Essential (primary) hypertension; R53.1 Weakness; I42.6 Alcoholic cardiomyopathy; F17.200 Nicotine dependence, unspecified, uncomplicated; E83.42 Hypomagnesemia; R06.02 Shortness of breath; I48.91 Unspecified atrial fibrillation; K59.00 Constipation, unspecified; R07.9 Chest pain, unspecified; I51.3 Intracardiac thrombosis, not elsewhere classified